=== PATIENT | male | born 1950 | race Caucasian/White ===

== ENCOUNTER 2020-10-30 23:42 | Emergency (ER) | payer BC, MEDICARE ==
--- NOTE | 2020-10-31 01:05 | ER Document Report ---
ED ENT - General Chief Complaint: Nose Bleed Stated Complaint: NOSE BLEED [id number] Time Seen by Provider: 10/31/20 00:00 Mode of Arrival: Medic Information source: Emergency Med Personnel Notes: 70-year-old male bearded with long hair and bloody T-shirt and blood that is dried over his mustache advises he had a nosebleed which began today earlier around 1500 on the right nostril. He tried using some Afrin nasal spray and had spoken with his brother who is a physician Rodrigo Iyer who works here. Patient reports 5 years ago he came to the ER with similar symptoms on the left nostril. He denies use of any cocaine or any nasal injury like picking his nose. He denies any trauma to his nose. He is a smoking man 1/2 pack/day and used to frequent bars until Covid ended his drinking days. He denies any nausea denies any headache and has had no blood work done for about 10 years despite being 70 years old. When I advised him to get a blood count he asked me just to get him out of the ER because his nosebleed quit upon arrival at around midnight. He only asked for a glass of cold water and ice water which I provided for him. Patient reports his nosebleed really started around 1030 on both sides and he had to call EMS. FARZANEH RN advises when vital signs were obtained that the patient is noncompliant on any blood pressure medicines. He used to take BP medicines written by Dr. [place] but no longer does this. He has a consistent 138/103 blood pressure and he did except a prescription for HCTZ that I wrote tonight. Please note patient did not want any expensive EKGs x-rays blood work or medications. I advised him for the pros and cons of being here in the ER tonight and the expense of the EMS truck may be much more of a consideration than the ER. TRAVEL OUTSIDE OF THE [place] IN LAST 30 DAYS: No - HPI Patient complains to provider of: Nose problem Onset: Just prior to arrival Onset/Duration: Sudden, Better - Related Data Allergies/Adverse Reactions: amoxicillin [Amoxicillin] Allergy (Intermediate, Verified 01/19/16 16:28) rash Past Medical History - General Information source: Patient - Social History Smoking Status: Current Every Day Smoker Cigarette use (# per day): Yes Chew tobacco use (# tins/day): No Smoking Education Provided: Yes Frequency of alcohol use: Occasional Lives with: Family Family History: Reviewed & Not Pertinent Patient has suicidal ideation: No Patient has homicidal ideation: No - Past Medical History Cardiac Medical History: Reports: Hx Hypertension Review of Systems - Review of Systems Constitutional: No symptoms reported EENT: No symptoms reported Cardiovascular: No symptoms reported Respiratory: No symptoms reported Gastrointestinal: No symptoms reported Genitourinary: No symptoms reported Male Genitourinary: No symptoms reported Musculoskeletal: No symptoms reported Skin: No symptoms reported Hematologic/Lymphatic: No symptoms reported Neurological/Psychological: No symptoms reported -: Yes All other systems reviewed and negative Physical Exam - Vital signs Interpretation: Normal - General General appearance: Appears well, Alert - HEENT Head: Normocephalic, Atraumatic Eyes: Normal Extraocular movements intact: Yes Pupils: PERRL Ears: Normal Nasal: Bloody discharge - Right nostril with dried bleeding point around conchae and left nostril with some dried blood minimally and posterior pharynx with some minimal drainage of blood. Pharynx: Blood in hypopharynx, Post nasal drainage Neck: Normal - Respiratory Respiratory status: No respiratory distress Chest status: Nontender Breath sounds: Normal Chest palpation: Normal - Cardiovascular Rhythm: Regular Heart sounds: Normal auscultation Murmur: No - Abdominal Inspection: Obese Distension: No distension Bowel sounds: Normal Tenderness: Nontender Organomegaly: No organomegaly - Rectal Prostate: Other - Deferred - Genitourinary Scrotum: Other - Deferred - Back Back: Normal, Nontender - Extremities General upper extremity: Normal inspection, Nontender, Normal color, Normal ROM, Normal temperature General lower extremity: Normal inspection, Nontender, Normal color, Normal ROM, Normal temperature, Normal weight bearing. No: Ian's sign - Neurological Neuro grossly intact: Yes Cognition: Normal Orientation: AAOx4 Trevor Coma Scale Eye Opening: Spontaneous Trevor Coma Scale Verbal: Oriented Trevor Coma Scale Motor: Obeys Commands [place] Coma Scale Total: 15 Speech: Normal Motor strength normal: LUE, RUE, LLE, RLE Sensory: Normal - Psychological Associated symptoms: Anxious - Skin Skin Temperature: Warm Skin Moisture: Dry Skin Color: Normal Course - Laboratory Results Critical Laboratory Results Reviewed: No Critical Results - Radiology Results Critical Radiology Results Reviewed: No Critical Results Discharge - Discharge Clinical Impression: Epistaxis not due to trauma Hypertension Qualifiers: Hypertension type: unspecified Qualified Code(s): I10 - Essential (primary) hypertension Condition: Stable Disposition: HOME, SELF-CARE Additional Instructions: Follow-up with personal doctor if possible for CBC and CMP which was advised here in the ER but we will write this down for your edification. Also for your nostril we can try in the future TXA or thrombin. The latter is a clotting factor component which is no longer needed because your nosebleed has stopped. TXA is a particular acid which is a amino acid analog which can help with cessation of any excessive bleeding. We can also use a nasal tampon soaked in cocaine or Afrin type products. You may also follow-up with ear nose throat doctor ENT like Dr. Hair. Some ENT doctors prescribed Bactroban nasal or Bactroban in their nostrils to keep the mucous membranes moist. Please try to get your blood pressure checked because this is a source for nosebleeds as well. I have written you prescription for HCTZ because your diastolic blood pressure is quite high. You may try taking 1/2 tablet a day to see if this works. Prescriptions: Hydrochlorothiazide [Hydrodiuril 25 mg Tablet] 25 mg PO QAM #30 tablet
[2020-10-31 01:32] VITALS: BP 128/103
== END 2020-10-31 01:33 | disposition home or self-care (01) ==
LOC: ER 23:42
DX: R04.0 Epistaxis (principal); F17.210 Nicotine dependence, cigarettes, uncomplicated; Z91.14 Patient's other noncompliance with medication regimen; I10 Essential (primary) hypertension; Z88.0 Allergy status to penicillin
CPT/HCPCS: 99283